=== PATIENT | male | born 1970 | race American Indian/Alaskan Native ===

== ENCOUNTER 2020-07-17 12:04 | Emergency (ER) | payer SELFPAY ==
[2020-07-17] MEDS ORDERED: FAMOTIDINE 20 MG/2 ML INJ IV ONE (12:41)
--- NOTE | 2020-07-17 12:41 | Emergency Department Report ---
HPI - General Chief Complaint: Allergic Reaction Time Seen by Provider: 07/17/20 12:31 - HPI HPI: Room 18 The patient is a 49-year-old male present with a chief complaint of allergic reaction. Patient states he was at work this morning at approximate 09: 30 when he developed hives across his body face and upper extremities. Patient states he was pruritic. Patient is not aware of any new ingestions or exposures. Patient denies history of fever. Patient states he had episodes of nausea vomiting prior to coming to the emergency department. EMS administered Solu- Medrol 125 mg IV and Benadryl 50 mg IV. The patient states his itching has resolved and he feels improved. Patient denied ever having shortness of breath ED Past Medical Hx - Past Medical History Previous Medical History?: Yes Hx Hypertension: Yes - Surgical History Past Surgical History?: Yes Additional Surgical History: L elbow - Family History Family history: no significant - Social History Smoking Status: Current Every Day Smoker (2/3 pack/day) Substance Use Type: None (Denies illicit drug use), Alcohol (Daily) - Medications Home Medications: Home Medications Medication Instructions Recorded Confirmed Last Taken Type Famotidine [Pepcid] 20 mg PO BID #6 tablet 07/17/20 Unknown Rx Potassium Chloride [K-Dur] 20 meq PO BID #2 tab 07/17/20 Unknown Rx Prednisone [predniSONE 10 mg 10 mg PO .TAPER #1 tab.ds.pk 07/17/20 Unknown Rx (6-Day Pack, 21 Tabs)] diphenhydrAMINE [Benadryl CAP] 50 mg PO Q6HR #24 capsule 07/17/20 Unknown Rx ED Review of Systems ROS: Stated complaint: ALLERGIC REACTION Other details as noted in HPI Constitutional: no symptoms reported Eyes: denies: eye pain ENT: denies: throat pain Respiratory: denies: shortness of breath Cardiovascular: denies: chest pain Endocrine: no symptoms reported Gastrointestinal: nausea, vomiting Skin: rash, pruritus Neurological: denies: headache Physical Exam - Physical Exam Vital Signs: Vital Signs 07/17/20 12:10 Temperature 97.8 F Physical Exam: GENERAL: The patient is well-developed well-nourished male sitting on stretcher not appearing to be in acute distress. [] HEENT: Normocephalic. Atraumatic. Extraocular motions are intact. Patient has moist mucous membranes. Oropharynx clear NECK: Supple. No meningitic signs are noted. No stridor CHEST/LUNGS: Clear to auscultation. There is no respiratory distress noted. HEART/CARDIOVASCULAR: Regular. There is no tachycardia. There is no gallop rub or murmur. ABDOMEN: Abdomen is soft, nontender. Patient has normal bowel sounds. There is no abdominal distention. SKIN: There is slight edema to bilateral hands, erythema to the face and hands. Resolving urticaria NEURO: The patient is awake, alert, and oriented. The patient is cooperative. The patient has normal speech MUSCULOSKELETAL: There is no evidence of acute injury. ED Course Vital Signs 07/17/20 12:10 Temperature 97.8 F ED Medical Decision Making - Lab Data Result diagrams: 07/17/20 13:20 07/17/20 13:20 Laboratory Tests 07/17/20 07/17/20 13:20 13:20 WBC 5.7 RBC 4.15 Hgb 15.8 H Hct 45.1 MCV 109 H MCH 38 H MCHC 35 H RDW 16.3 H Plt Count 115 L Lymph % (Auto) 10.0 L Bowie % (Auto) 3.3 Eos % (Auto) 0.6 Baso % (Auto) 0.4 Lymph # (Auto) 0.6 L Bowie # (Auto) 0.2 Eos # (Auto) 0.0 Baso # (Auto) 0.0 Seg Neutrophils % 85.7 H Seg Neutrophils # 4.9 Sodium 137 Potassium 2.8 L* Chloride 91.2 L Carbon Dioxide 34 H Anion Gap 15 BUN 9 Creatinine 1.0 Estimated GFR > 60 BUN/Creatinine Ratio 9 Glucose 106 H Calcium 9.0 - Differential Diagnosis Acute allergic reaction Critical care attestation.: If time is entered above; I have spent that time in minutes in the direct care of this critically ill patient, excluding procedure time. ED Disposition Clinical Impression: Acute allergic reaction, Hypokalemia Disposition: - TO HOME OR SELFCARE Is pt being admited?: No Does the pt Need Aspirin: No Condition: Stable Instructions: Urticaria (ED) Additional Instructions: Return to the emergency department should you develop worsening symptoms, inability to tolerate food or liquids, high fever or any other concerns Prescriptions: diphenhydrAMINE [Benadryl CAP] 50 mg PO Q6HR #24 capsule Potassium Chloride [K-Dur] 20 meq PO BID #2 tab Famotidine [Pepcid] 20 mg PO BID #6 tablet Prednisone [predniSONE 10 mg (6-Day Pack, 21 Tabs)] 10 mg PO .TAPER #1 tab.ds.pk Referrals: [facility] [Provider Group] - 3-5 Days ELIGIO CARVALHO MD [Staff Physician] - [facility] (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 Please follow-up with her for further evaluation) Time of Disposition: 14:26
[2020-07-17 13:49] LABS: Basophils % (Auto) 0.4 % (0.0-1.8); Eosinophils % (Auto) 0.6 % (0.0-4.3); Hematocrit 45.1 % (35.5-45.6); Hemoglobin 15.8 gm/dl (11.8-15.2); Lymphocytes # (Auto) 0.6 K/mm3 (1.2-5.4); Mean Corpuscular HGB Conc 35 % (32-34); Mean Corpuscular Volume 109 fl (84-94); Monocytes # (Auto) 0.2 K/mm3 (0.0-0.8); Monocytes % (Auto) 3.3 % (0.0-7.3); Platelet Count 115 K/mm3 (140-440); Red Blood Count 4.15 M/mm3 (3.65-5.03); Red Cell Distribution Width 16.3 % (13.2-15.2)
[2020-07-17 14:10] LABS: BUN/Creatinine Ratio 9; Blood Urea Nitrogen 9 mg/dL (9-20); Hemolysis Index 10
[2020-07-17] MEDS ORDERED: POTASSIUM CHLORIDE ER 20 MEQ TAB PO ONE ×2 (14:19→14:20)
[2020-07-17 14:52] VITALS: BP 132/91
== END 2020-07-17 14:46 | disposition home or self-care (01) ==
LOC: ED 12:04
DX: T78.40XA Allergy, unspecified, initial encounter (principal); E87.6 Hypokalemia; I10 Essential (primary) hypertension; F17.200 Nicotine dependence, unspecified, uncomplicated; Z98.890 Other specified postprocedural states; Z91.040 Latex allergy status; Z79.899 Other long term (current) drug therapy; X58.XXXA Exposure to other specified factors, initial encounter
CPT/HCPCS: 36415; 80048; 85025; 96374